=== PATIENT | female | born 1980 | race American Indian/Alaskan Native ===

== ENCOUNTER 2017-06-18 18:05 | Inpatient (IN) | payer MEDICAID, OTHER ==
[2017-06-18 19:47] LABS: BASO # 0.1 K/uL (0.0-0.2); BASO % 0.9 % (0.0-2.0); EOS # 0.2 K/uL (0.0-0.7); EOS % 2.1 % (0.0-4.0); HEMOGLOBIN 10.9 g/dL (11.0-16.0); LYMPH # 2.7 K/uL (1.0-4.3); LYMPH % 37.3 % (20.0-40.0); MEAN CELL VOLUME 71.5 fL (81.0-99.0); MEAN CORPUSCULAR HEMOGLOBIN 22.2 pg (27.0-31.0); MEAN CORPUSCULAR HGB CONC 31.1 g/dL (33.0-37.0); MEAN PLATELET VOLUME 7.5 fL (7.2-11.7); MONO # 0.4 K/uL (0.0-0.8); MONO % 5.6 % (0.0-10.0); NEUT % 54.1 % (50.0-75.0); NRBC % 0.1 % (0.0-2.0); RBC 4.93 Mil/uL (3.80-5.20); RED CELL DISTRIBUTION WIDTH 19.4 % (11.5-14.5); WHITE BLOOD COUNT 7.3 K/uL (4.8-10.8)
[2017-06-18 19:57] LABS: ACETAMINOPHEN < 10.0 ug/mL (10.0-30.0); SALICYLATE < 1.0 mg/dL 1
[2017-06-18 20:00] LABS: ALBUMIN 3.9 g/dL (3.5-5.0); ALT/SGPT 17 U/L (9-52); AST/SGOT 18 U/L (14-36); BLOOD UREA NITROGEN 10 mg/dL (7-17); CALCIUM 8.5 mg/dl (8.6-10.4); GFR AFRICAN-AMERICAN > 60; GFR NON-AFRICAN AMERICAN > 60
[2017-06-18 20:06] LABS: BARBITURATES, UR NEGATIVE (NEGATIVE); BENZODIAZEPINES, UR NEGATIVE (NEGATIVE); OPIATES, UR POSITIVE (NEGATIVE); PHENCYCLIDINE, UR NEGATIVE (NEGATIVE)
--- NOTE | 2017-06-18 21:03 | C.PDOC ---
History Of Present Illness Patient is a 36 y/o female who presents to the ED requesting detox. Patient admits to feeling depressed and having SI; admits snorting 15 bags of heroin a day, but denies IV drug use. Patient also admits to using cocaine often, smoking 4 cigarettes a day, and taking Xanax for anxiety. Patient has a Hx of HTN and cholecystectomy in 2011. Denies any allergies. No other physical complaints at this time. Time Seen by Provider: 06/18/17 19:18 Chief Complaint (Nursing): Substance Abuse History Per: Patient History/Exam Limitations: no limitations Onset/Duration Of Symptoms: Hrs Current Symptoms Are (Timing): Still Present Suicide/Self Injury Attempted (Context): None Modifying Factor(s): Narcotics (heroin), Cocaine Associated Symptoms: Depression, Suicidal Thoughts Recent travel outside of the [place] States: No Past Medical History Reviewed: Historical Data, Nursing Documentation, Vital Signs Vital Signs: Last Vital Signs Temp 98.4 F 06/18/17 23:39 Pulse 71 06/18/17 23:39 Resp 18 06/18/17 23:39 BP 135/96 H 06/18/17 23:39 Pulse Ox 99 06/19/17 06:10 - Medical History PMH: HTN Surgical History: Cholecystectomy Family History: States: No Known Family Hx - Social History Hx Alcohol Use: No Hx Substance Use: Yes - Immunization History Hx Tetanus Toxoid Vaccination: No Hx Influenza Vaccination: No Hx Pneumococcal Vaccination: No Review Of Systems Constitutional: Negative for: Fever, Chills Eyes: Negative for: Pain, Vision Change ENT: Negative for: Ear Pain, Ear Discharge, Nose Pain, Nose Discharge Cardiovascular: Negative for: Chest Pain, Palpitations, Orthopnea, Paroxysmal Noc. Dyspnea, Edema Respiratory: Negative for: Cough, Shortness of Breath, Hemoptysis, SOB with Excertion, Pleuritic Pain Gastrointestinal: Negative for: Nausea, Vomiting, Abdominal Pain, Diarrhea, Constipation, Melena, Hematochezia, Hematemesis, Rectal Pain Genitourinary: Negative for: Dysuria Musculoskeletal: Negative for: Neck Pain Skin: Negative for: Rash Neurological: Negative for: Weakness Psych: Positive for: Anxiety, Depression, Suicidal ideation, Other (requests detox) Physical Exam - Physical Exam Appears: Well, Non-toxic, No Acute Distress Skin: Normal Color, Warm, Dry Head: Atraumatic, Normacephalic Eye(s): bilateral: Normal Inspection Ear(s): Bilateral: Normal Nose: Normal Oral Mucosa: Moist Tongue: Normal Appearing Lips: Normal Appearing Teeth: Normal Dentition Chest: Symmetrical Cardiovascular: Rhythm Regular, No Murmur Respiratory: Normal Breath Sounds, No Rales, No Rhonchi, No Wheezing Gastrointestinal/Abdominal: Soft, No Tenderness ED Course And Treatment - Laboratory Results Result Diagrams: 06/18/17 19:39 06/18/17 19:39 O2 Sat by Pulse Oximetry: 99 Progress Note: Crisis notified for consult. 9:40pm magnesium and potassium administered. Patient admitted to psychiatry under Dr. Melgar for major depressive disorder, single episode. Medical Decision Making Medical Decision Making: Lab results: CBC negative Potassium 3.3, low urine negative positive for opiates and cocaine pt admitted to psych for depression with suicidal thoughts and substance abuse. labs unremarkable. Disposition - Disposition Disposition: HOSPITALIZED Disposition Time: 06:11 Condition: STABLE - Clinical Impression Clinical Impression: Drug dependence, Depression - Scribe Statement The provider has reviewed the documentation as recorded by the Scribchiara Gandhi All medical record entries made by the Scribe were at my direction and personally dictated by me. I have reviewed the chart and agree that the record accurately reflects my personal performance of the history, physical exam, medical decision making, and the department course for this patient. I have also personally directed, reviewed, and agree with the discharge instructions and disposition.
[2017-06-18] MEDS ORDERED: Magnesium Sulfate 1 gm in D5W 1 GM/100 ML BAG IVPB ONE (21:41)
[2017-06-18] MEDS ORDERED: Potassium Chloride 20 mEq ER Tab PO ONE (22:31)
[2017-06-18] MEDS ORDERED: Potassium Chloride 20 mEq ER Tab PO STA (22:34)
[2017-06-19] MEDS ORDERED: Aluminum Hydroxide/Magnesium Hydroxide Susp (30 mL) PO PRN (01:01)
--- NOTE | 2017-06-19 02:24 | PCM.BM ---
<JessicaClaudia - Last Filed: 06/19/17 02:21> Treatment Plan Problems - Problems identified on initial assessmt Problem 1 Date Initiated: 06/19/17 Time Initiated: 02:23 Treatment assets and liabiliti Patient Assests: adapts well, cooperative, motivated, ADL independent, good support system, negotiates basic needs Patient Liabilities: relationship conflicts, substance abuse <JosephineJosephineadrian - Last Filed: 06/19/17 12:42> - Diagnosis (1) Opioid use disorder, severe, dependence Status: Acute Interventions: 06/19/17 12:43 * Assess 7x/week regarding severity of withdrawal * Educate regarding risks, benefits, side effects and alternatives of medications * Use Motivational Interviewing for abstinence * Use CBT for relapse prevention * Medication management for withdrawal symptoms * Encourage medication assisted treatment * (2) Depression Status: Acute Interventions: 06/19/17 12:43 * Assess/adjust medications daily and /or as needed * See patient on an individual basis 7x/week to assess symptoms of depression * Monitor for side effects & effectiveness of medications * <Mandy Padilla - Last Filed: 06/20/17 10:42> Family Contact Family involvement: Famliy/SO not involved - Goals for Treatment Patient goals for treatment: "I want to go to rehab." Discharge/Continuing Care - Education Needs Education Needs: Patient Medication, Patient Coping Skills, Patient Placement options, Patient Community resources - Discharge Discharge Criteria: Tolerates medication w/o severe side effects, No longer exhibiting s/s of withdrawal Discharge to:: Substance Abuse Rehab - Treatment Team Participation Discussed with Family/SO: No Was Patient/Family/SO present at Treatment Team Meeting: Yes
[2017-06-19 06:10] VITALS: O2SAT 99
[2017-06-19] MEDS ORDERED: Potassium Chloride 20 mEq ER Tab PO SCH (10:00)
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
--- NOTE | 2017-06-20 10:48 | PCM.PYCHPN ---
Psychiatric Progress Note - Psychiatric Progress Note Patient seen today, length of contact: 16 min Patient Chief Complaint: "I am depressed" Problems Identified/Issues Discussed: The pt is seen alone and w the team, chart reviewed, case discussed with staff. Support given, CBT and MS used briefly No new symptoms reported, improving slowly and needs more time No SEs from medications, risks discussed. After care discussed - interested in [facility] Medication Change: Yes (meds change) Medical Record Reviewed: Yes Mental Status Examination - Cognitive Function Orientation: Person, Place, Situation, Time Memory: Intact Attention: Poor Concentration: Poor Association: WNL Fund of Knowledge: Poor - Mood Mood: Depressed, Anxious - Affect Affect: Constricted, Depressed - Speech Speech: Appropriate, Soft - Formal Thought Process Formal Thought Process: No Impairment - Suicidal Ideation Suicidal Ideation: No - Homicidal Ideation Homicidal Ideation: No Goal/Treatment Plan - Goal/Treatment Plan Need for Continued Stay: Discharge may exacerbated symptoms, Severe functional impairment Progress Toward Problem(s) and Goals/Treatment Plan: Fluexetine 20mg PO daily for depression Neurontin 300mg PO BID for anxiety Methadone detox As needed medications Attend groups and activities Individual therapy Psychoeducation and support MS for abstinence CBT for relapse prevention Encourage compliance with meds and after care Refer to outpatient program, rehab, or IOP Teach healthy lifestyle methods, i.e. diet, exercise, meditation Estimated Date of D/C: 06/25/17
--- NOTE | 2017-06-21 14:29 | PCM.PYCHPN ---
Psychiatric Progress Note - Psychiatric Progress Note Patient seen today, length of contact: 16 min Patient Chief Complaint: "I am depressed" Problems Identified/Issues Discussed: The pt is seen, chart reviewed, case discussed with staff. The pt is compliant with medications and reports no side-effects. Symptoms are improving but needs more time to stabilize. Still isolated and looks and says she is depressed After care discussed, support and psychoeducation given. Waiting from [facility] Medication Change: Yes (meds change) Medical Record Reviewed: Yes Mental Status Examination - Cognitive Function Orientation: Person, Place, Situation, Time Memory: Intact Attention: Poor Concentration: Poor Association: WNL Fund of Knowledge: Poor - Mood Mood: Depressed, Anxious - Affect Affect: Constricted, Depressed - Speech Speech: Appropriate, Soft - Formal Thought Process Formal Thought Process: No Impairment - Suicidal Ideation Suicidal Ideation: No - Homicidal Ideation Homicidal Ideation: No Goal/Treatment Plan - Goal/Treatment Plan Need for Continued Stay: Discharge may exacerbated symptoms, Severe functional impairment Progress Toward Problem(s) and Goals/Treatment Plan: Fluexetine 20mg PO daily for depression Neurontin 300mg PO BID for anxiety Methadone detox As needed medications Attend groups and activities Individual therapy Psychoeducation and support IN for abstinence CBT for relapse prevention Encourage compliance with meds and after care Refer to outpatient program, rehab, or IOP Teach healthy lifestyle methods, i.e. diet, exercise, meditation Estimated Date of D/C: 06/25/17
[2017-06-22] MEDS ORDERED: Influenza Vaccine 60 mcg/0.5 mL SYR (4YR UP) IM ONE (09:00)
[2017-06-22] MEDS ORDERED: Pneumococcal 23-Valent Vaccine IM ONE (09:00)
--- NOTE | 2017-06-22 14:18 | PCM.PYCHPN ---
Psychiatric Progress Note - Psychiatric Progress Note Patient seen today, length of contact: 16 min Patient Chief Complaint: "I feel like the medication is helping" Problems Identified/Issues Discussed: The pt is seen, chart reviewed, case discussed with staff. Patient has been tearful and not sleeping well through the night. She states the she has been better on the medications. The pt is compliant with medications and reports no side-effects. Symptoms are improving but needs more time to stabilize. After care discussed, support and psychoeducation given. Medication Change: Yes (increase prozac to 40 mg) Medical Record Reviewed: Yes Mental Status Examination - Cognitive Function Orientation: Person, Place, Situation, Time Memory: Intact Attention: Poor Concentration: Poor Association: WNL Fund of Knowledge: Poor - Mood Mood: Depressed, Anxious - Affect Affect: Constricted, Depressed - Speech Speech: Appropriate, Soft - Formal Thought Process Formal Thought Process: No Impairment - Suicidal Ideation Suicidal Ideation: No - Homicidal Ideation Homicidal Ideation: No Goal/Treatment Plan - Goal/Treatment Plan Need for Continued Stay: Discharge may exacerbated symptoms, Severe functional impairment Progress Toward Problem(s) and Goals/Treatment Plan: Fluexetine 40mg PO daily for depression Methadone detox As needed medications Attend groups and activities Individual therapy Psychoeducation and support AR for abstinence CBT for relapse prevention Encourage compliance with meds and after care Refer to outpatient program, rehab, or IOP Teach healthy lifestyle methods, i.e. diet, exercise, meditation Estimated Date of D/C: 06/26/17 If changed, why: still depressed
--- NOTE | 2017-06-23 11:36 | PCM.PYCHPN ---
Psychiatric Progress Note - Psychiatric Progress Note Patient seen today, length of contact: 16 min Patient Chief Complaint: I'm hearing voices Medication Change: Yes (increase prozac to 40 mg) Medical Record Reviewed: Yes Mental Status Examination - Cognitive Function Orientation: Person, Place, Situation, Time Memory: Intact Attention: Poor Concentration: Poor Association: WNL Fund of Knowledge: Poor - Mood Mood: Depressed, Anxious - Affect Affect: Constricted, Depressed - Speech Speech: Appropriate, Soft - Formal Thought Process Formal Thought Process: Hallucinations - Suicidal Ideation Suicidal Ideation: No - Homicidal Ideation Homicidal Ideation: No Goal/Treatment Plan - Goal/Treatment Plan Need for Continued Stay: Discharge may exacerbated symptoms, Severe functional impairment Progress Toward Problem(s) and Goals/Treatment Plan: Fluexetine 40mg PO daily for depression Methadone detox As needed medications Attend groups and activities Individual therapy Psychoeducation and support SC for abstinence CBT for relapse prevention Encourage compliance with meds and after care Refer to outpatient program, rehab, or IOP Teach healthy lifestyle methods, i.e. diet, exercise, meditation Estimated Date of D/C: 06/26/17
--- NOTE | 2017-06-24 13:35 | PCM.PYCHPN ---
Psychiatric Progress Note - Psychiatric Progress Note Patient seen today, length of contact: 16 min Patient Chief Complaint: I'm still feeling paranoid Medication Change: Yes (increase prozac to 60 mg, start prolixin 5 gm PO BID) Medical Record Reviewed: Yes Mental Status Examination - Cognitive Function Orientation: Person, Place, Situation, Time Memory: Intact Attention: Poor Concentration: Poor Association: WNL Fund of Knowledge: Poor - Mood Mood: Depressed, Anxious - Affect Affect: Constricted, Depressed - Speech Speech: Appropriate, Soft - Formal Thought Process Formal Thought Process: Hallucinations, Paranoia - Suicidal Ideation Suicidal Ideation: No - Homicidal Ideation Homicidal Ideation: No Goal/Treatment Plan - Goal/Treatment Plan Need for Continued Stay: Discharge may exacerbated symptoms, Severe functional impairment Progress Toward Problem(s) and Goals/Treatment Plan: Fluexetine 40mg PO daily for depression Methadone detox As needed medications Attend groups and activities Individual therapy Psychoeducation and support VT for abstinence CBT for relapse prevention Encourage compliance with meds and after care Refer to outpatient program, rehab, or IOP Teach healthy lifestyle methods, i.e. diet, exercise, meditation Estimated Date of D/C: 06/26/17
--- NOTE | 2017-06-25 13:26 | PCM.PYCHPN ---
Psychiatric Progress Note - Psychiatric Progress Note Patient seen today, length of contact: 16 min Patient Chief Complaint: "I feel like I'm improving Problems Identified/Issues Discussed: The pt is seen, chart reviewed, case discussed with staff. Weekend events discussed. She said she had heard a vooice but it was brief Doing better now Agreed to switch meds - risks discussed Support given She now says her PO will not allow her to leave the [facility] to [facility] ([facility] . Technology Director asked her to call again and explain how hard it is to find a rehab She says if not, she may go to her brother's house, which is new. Medication Change: Yes (DC prolixin/cogentin, start abilify) Medical Record Reviewed: Yes Mental Status Examination - Cognitive Function Orientation: Person, Place, Situation, Time Memory: Intact Attention: Poor Concentration: Poor Association: WNL Fund of Knowledge: Poor - Mood Mood: Depressed, Anxious - Affect Affect: Constricted, Depressed - Speech Speech: Appropriate, Soft - Formal Thought Process Formal Thought Process: No Impairment - Suicidal Ideation Suicidal Ideation: No - Homicidal Ideation Homicidal Ideation: No Goal/Treatment Plan - Goal/Treatment Plan Need for Continued Stay: Discharge may exacerbated symptoms, Severe functional impairment Progress Toward Problem(s) and Goals/Treatment Plan: Fluexetine 40mg PO daily for depression Abilify 5 mg for AH and augmentation Methadone detox ended As needed medications Attend groups and activities Individual therapy Psychoeducation and support FL for abstinence CBT for relapse prevention Encourage compliance with meds and after care Refer to outpatient program, rehab, or IOP Teach healthy lifestyle methods, i.e. diet, exercise, meditation Estimated Date of D/C: 06/28/17 If changed, why: not well yet
--- NOTE | 2017-06-26 15:12 | PCM.PYCHPN ---
Psychiatric Progress Note - Psychiatric Progress Note Patient seen today, length of contact: 16 min Patient Chief Complaint: "I feel depressed today" Problems Identified/Issues Discussed: The pt is seen, chart reviewed, case discussed with staff. Discussed the issue of her PO not allowing her to leave the sate for [employer]. Patient states she doesn't want to go after finding out her mother yesterday. States her brother is a senior information security analyst at [employer] and is going to try to get her in there. She now wishes to go to [employer] and will live with him. The pt is compliant with medications and reports no side-effects. Symptoms are improving but needs more time to stabilize. After care discussed, support and psychoeducation given. Medication Change: Yes (DC prolixin/cogentin, start abilify) Medical Record Reviewed: Yes Mental Status Examination - Cognitive Function Orientation: Person, Place, Situation, Time Memory: Intact Attention: Poor Concentration: Poor Association: WNL Fund of Knowledge: Poor - Mood Mood: Depressed, Anxious - Affect Affect: Constricted, Depressed - Speech Speech: Appropriate, Soft - Formal Thought Process Formal Thought Process: No Impairment - Suicidal Ideation Suicidal Ideation: No - Homicidal Ideation Homicidal Ideation: No Goal/Treatment Plan - Goal/Treatment Plan Need for Continued Stay: Discharge may exacerbated symptoms, Severe functional impairment Progress Toward Problem(s) and Goals/Treatment Plan: Fluexetine 40mg PO daily for depression Abilify 5 mg for AH and augmentation Methadone detox ended As needed medications Attend groups and activities Individual therapy Psychoeducation and support AR for abstinence CBT for relapse prevention Encourage compliance with meds and after care Refer to outpatient program, rehab, or IOP Teach healthy lifestyle methods, i.e. diet, exercise, meditation Estimated Date of D/C: 06/27/17
[2017-06-27 06:49] VITALS: BP 106/63; PULSE 56; RESP 20; TEMP 98
--- NOTE | 2017-06-27 10:38 | PCM.PYCHDC ---
Mental Status Examination - Mental Status Examination Orientation: Person, Place, Situation, Time Memory: Intact Mood: Depressed Affect: Broad Speech: Appropriate Attention: WNL Concentration: WNL Association: WNL Fund of Knowledge: WNL Formal Thought Process: No Impairment Suicidal Ideation: No Current Homicidal Ideation?: No Discharge Summary - Discharge Note Reason for Hospitalization: Depression and detox from heroin Consultations:: List each consultation separately and include: 1. Reason for request. 2. Findings. 3. Follow-up Summary of Hospital Course include:: 1. Description of specific treatment plan utilized for patients during their course of treatmen. 2. Summarize the time- course for resolution of acute symptoms and/or regressed behaviors. 3. Describe issues identified and worked on during hospitalization. 4. Describe medication utilized. 5. Describe medical problems identified and treated. 6. Reassessment of suicide risk Summary of Hospital Course: The pt was admitted and started on treatment with psychotherapy, support, psychoeducation and medications. MS and CBT used. The pt attended groups and activities, as well as milieu therapy. All the risks and benefits of medications are discussed and the patient understood and agreed. The pt improved with the treatments provided. After care discussed with the patient. Plans to go live with her brother who is trying to get [facility] a bed [facility]. - Final Diagnosis (DSM 5) Condition upon Discharge: STABLE DSM 5: Major depression, recurrent, severe, w/o psychosis Anxiety d/o- unspecified Opioid use d/o- severe Opiate withdraw Cocaine use d/o- severe Disposition: HOME/ ROUTINE Follow-up Treatment Plan: Continue below medications after discharge. PSGeovani Abilify is switched to seroquel 100 mg HS after d/c because her insurance denied it. Follow after care plan as discussed. Use relapse prevention skills Return to ER or call 911 if suicidal, homicidal or symptoms relapse. Stay away from stress, alcohol and drugs. See primary doctor regularly and get labs. Prescriptions/Medication Reconciliation: ARIPiprazole [Abilify] 5 mg PO HS #30 tab FLUoxetine [Prozac] 40 mg PO DAILY #30 cap traZODone [Desyrel] 100 mg PO HS #30 tab - Antipsychotic Medications Pt discharged on 2 or more routine antipsychotic medications: No
== END 2017-06-27 11:45 | disposition home or self-care (01) | DRG 430 ==
LOC: C.ER 18:05 → C.5E 22:29
PROVIDERS: ADMIT Psychiatry & Neurology Psychiatry; ATTEND Psychiatry & Neurology Psychiatry
PROC: GZ3ZZZZ Medication Management (ICD-10-PCS; principal; 2017-06-18)
PROC: HZ2ZZZZ Detoxification Services for Substance Abuse Treatment (ICD-10-PCS; 2017-06-18)
PROC: GZHZZZZ Group Psychotherapy (ICD-10-PCS; 2017-06-18)
PROC: HZ56ZZZ Individual Psychotherapy for Substance Abuse Treatment, Psychoeducation (ICD-10-PCS; 2017-06-18)
PROC: GZ56ZZZ Individual Psychotherapy, Supportive (ICD-10-PCS; 2017-06-18)
DX: F33.2 Major depressive disorder, recurrent severe without psychotic features (principal); R45.851 Suicidal ideations; F11.23 Opioid dependence with withdrawal; F14.90 Cocaine use, unspecified, uncomplicated; F43.12 Post-traumatic stress disorder, chronic; F41.9 Anxiety disorder, unspecified; F17.210 Nicotine dependence, cigarettes, uncomplicated; I10 Essential (primary) hypertension; Z59.0 Homelessness; Z90.49 Acquired absence of other specified parts of digestive tract

== ENCOUNTER 2018-09-12 05:30 | Inpatient (IN) | payer MEDICAID, OTHER ==
[2018-09-12 06:22] LABS: BASO # 0.2 K/uL (0.0-0.2); BASO % 1.4 % (0.0-2.0); EOS # 0.3 K/uL (0.0-0.7); EOS % 2.5 % (0.0-4.0); HEMOGLOBIN 10.9 g/dL (11.0-16.0); LYMPH # 3.7 K/uL (1.0-4.3); LYMPH % 33.9 % (20.0-40.0); MEAN CELL VOLUME 72.7 fL (81.0-99.0); MEAN CORPUSCULAR HEMOGLOBIN 23.2 pg (27.0-31.0); MEAN PLATELET VOLUME 7.2 fL (7.2-11.7); MONO # 0.6 K/uL (0.0-0.8); MONO % 5.2 % (0.0-10.0); NEUT # 6.3 K/uL (1.8-7.0); NRBC % 0.1 % (0.0-2.0); RBC 4.67 Mil/uL (3.80-5.20); RED CELL DISTRIBUTION WIDTH 20.5 % (11.5-14.5)
[2018-09-12 06:27] LABS: SQUAMOUS EPITHIAL 4 /hpf (0-5); URINE BILIRUBIN NEGATIVE (NEGATIVE); URINE BLOOD 3+ (NEGATIVE); URINE CLARITY Hazy (Clear); URINE COLOR Amber (YELLOW); URINE GLUCOSE (UA) NORMAL (Normal); URINE LEUKOCYTE ESTERASE TRACE Leu/uL (Negative); URINE PROTEIN 2+ mg/dL (NEGATIVE)
[2018-09-12 06:36] LABS: ALB/GLOB RATIO 1.3 (1.0-2.1); ALBUMIN 4.3 g/dL (3.5-5.0); ALT/SGPT 13 U/L (9-52); AST/SGOT 20 U/L (14-36); BLOOD UREA NITROGEN 11 mg/dL (7-17); CALCIUM 9.4 mg/dl (8.6-10.4); GFR NON-AFRICAN AMERICAN > 60
[2018-09-12 06:44] LABS: BARBITURATES, UR NEGATIVE (NEGATIVE); BENZODIAZEPINES, UR NEGATIVE (NEGATIVE); PHENCYCLIDINE, UR NEGATIVE (NEGATIVE)
[2018-09-12 06:48] LABS: OPIATES, UR POSITIVE (NEGATIVE)
--- NOTE | 2018-09-12 06:48 | C.PDOC ---
History Of Present Illness 37-year-old female, whose past medical history includes anxiety and panic attacks, presents to the ED for psychiatric evaluation. Patient states she has been feeling depressed and feeling like she wants to hurt herself. She was advis ed by her communications equipment operator to present to the ED for further evaluation. Patient does not regularly follow with a psychiatrist and is not taking any psychiatric medications. Patient reports history of hypertension, but states she stopped taking her medication. She denies suicidal plan or attempt. Time Seen by Provider: 09/12/18 06:12 Chief Complaint (Nursing): Psychiatric Evaluation History Per: Patient History/Exam Limitations: no limitations Onset/Duration Of Symptoms: Days Current Symptoms Are (Timing): Still Present Suicide/Self Injury Attempted (Context): None Associated Symptoms: Depression, Suicidal Thoughts. denies: Suicidal Plan Involuntary Hold By: None Recent travel outside of the [place]: No Additional History Per: Patient Past Medical History Reviewed: Historical Data, Nursing Documentation, Vital Signs Vital Signs: Last Vital Signs Temp 97.9 F 09/12/18 05:55 Pulse 90 09/12/18 05:55 Resp 20 09/12/18 05:55 BP 136/84 09/12/18 05:55 Pulse Ox 95 09/12/18 05:55 - Medical History PMH: Anxiety, Depression, HTN Denies: Diabetes, Hepatitis, HIV, Chronic Kidney Disease, Seizures, Sexually Transmitted Disease Surgical History: Cholecystectomy - [facility] Procedures DETOXIFICATION SERVICES FOR SUBSTANCE ABUSE TREATMENT (06/18/17) GROUP PSYCHOTHERAPY (02/19/18) INDIV PSYCHOTHERAPY FOR SUBSTANCE ABUSE, PSYCHOEDUCATION (06/18/17) INDIVIDUAL PSYCHOTHERAPY, SUPPORTIVE (02/19/18) MEDICATION MANAGEMENT (06/18/17) Family History: States: Unknown Family Hx - Social History Hx Alcohol Use: Yes (occasionally) Hx Substance Use: Yes (heroin,cocaine,xanax) - Immunization History Hx Tetanus Toxoid Vaccination: No Hx Influenza Vaccination: No Hx Pneumococcal Vaccination: No Review Of Systems Constitutional: Negative for: Fever, Chills, Weakness Cardiovascular: Negative for: Chest Pain, Palpitations Respiratory: Negative for: Cough, Shortness of Breath Gastrointestinal: Negative for: Nausea, Vomiting Skin: Negative for: Rash, Lesions, Jaundice, Bruising Neurological: Negative for: Weakness, Numbness, Dizziness Psych: Positive for: Depression, Suicidal ideation (no plan ) Physical Exam - Physical Exam Appears: Well, Non-toxic, No Acute Distress Skin: Normal Color, Warm, No Rash Head: Atraumatic, Normacephalic Eye(s): bilateral: Normal Inspection, PERRL, EOMI Oral Mucosa: Moist Neck: Normal ROM, Supple Chest: Symmetrical, No Deformity Cardiovascular: Rhythm Regular, No Murmur Respiratory: No Accessory Muscle Use, No Rales, No Rhonchi, No Wheezing, Other (normal inspiratory effort ) Gastrointestinal/Abdominal: Soft, No Distention Extremity: Normal ROM Extremity: Bilateral: Atraumatic Neurological/Psych: Oriented x3, Normal Cranial Nerves (grossly intact ) ED Course And Treatment - Laboratory Results Result Diagrams: 09/12/18 06:18 09/12/18 06:18 Lab Results: Total Bilirubin 0.4 mg/dL (0.2-1.3) 09/12/18 06:18 AST 20 U/L (14-36) 09/12/18 06:18 ALT 13 U/L (9-52) 09/12/18 06:18 Alkaline Phosphatase 62 U/L (38-126) 09/12/18 06:18 Total Protein 7.6 g/dL (6.3-8.3) 09/12/18 06:18 Albumin 4.3 g/dL (3.5-5.0) 09/12/18 06:18 Globulin 3.3 gm/dL (2.2-3.9) 09/12/18 06:18 Albumin/Globulin Ratio 1.3 (1.0-2.1) 09/12/18 06:18 Urine Color Otilia (YELLOW) 09/12/18 06:18 Urine Clarity Hazy (Clear) 09/12/18 06:18 Urine pH 5.0 (5.0-8.0) 09/12/18 06:18 Ur Specific [place] 1.031 (1.003-1.030) H 09/12/18 06:18 Urine Protein 2+ mg/dL (NEGATIVE) H 09/12/18 06:18 Urine Glucose (UA) Normal mg/dL (Normal) 09/12/18 06:18 Urine Ketones Trace mg/dL (NEGATIVE) 09/12/18 06:18 Urine Blood 3+ (NEGATIVE) H 09/12/18 06:18 Urine Nitrate Negative (NEGATIVE) 09/12/18 06:18 Urine Bilirubin Negative (NEGATIVE) 09/12/18 06:18 Urine Urobilinogen 4.0 mg/dL (0.2-1.0) H 09/12/18 06:18 Ur Leukocyte Esterase Trace [place]/uL (Negative) 09/12/18 06:18 Urine WBC (Auto) 6 /hpf (0-5) H 09/12/18 06:18 Urine RBC (Auto) 166 /hpf (0-3) H 09/12/18 06:18 Ur Squamous Epith Cells 4 /hpf (0-5) 09/12/18 06:18 Urine HCG, Qual Negative (NEGATIVE) 09/12/18 06:18 Urine HCG, Qual Negative (NEGATIVE) 09/12/18 06:18 O2 Sat by Pulse Oximetry: 95 (on RA ) Pulse Ox Interpretation: Normal Medical Decision Making Medical Decision Making: Progress: Bloodwork and urinalysis ordered. Patient placed on 1:1 ED observation. Disposition - Disposition Disposition Time: 07:24 Condition: STABLE Forms: [employer] (Uzbek) - Clinical Impression Clinical Impression: Depression - PA / OFFICE BOOKKEEPER / Resident Statement MD/DO has reviewed & agrees with the documentation as recorded. - Scribe Statement The provider has reviewed the documentation as recorded by the Scribe (Sandrita Cam) All medical record entries made by the Scribe were at my direction and personally dictated by me. I have reviewed the chart and agree that the record accurately reflects my personal performance of the history, physical exam, medical decision making, and the department course for this patient. I have also personally directed, reviewed, and agree with the discharge instructions and disposition. Physician Patient Turnover Patient Signed Over To: Mona Langley (needs to speak to crisis)
[2018-09-12] MEDS ORDERED: Potassium Chloride 20 mEq/15 ml LIQ UD PO STA (07:25)
[2018-09-12] MEDS ORDERED: Potassium Chloride 20 mEq ER Tab PO ONE (08:46)
[2018-09-12 10:14] VITALS: O2SAT 99
--- NOTE | 2018-09-12 12:01 | PCM.BM ---
<Myrna Mcdonough - Last Filed: 09/12/18 12:00> Treatment Plan Problems - Problems identified on initial assessmt Substance Abuse Date Initiated: 09/12/18 Time Initiated: 12:00 Assessment reference: NA Status: Active Suicidal Ideations. Date Initiated: 09/12/18 Time Initiated: 12:01 Assessment reference: NA Status: Active Treatment assets and liabiliti Patient Assests: adapts well, cooperative, motivated, ADL independent, good support system, negotiates basic needs Patient Liabilities: poor support system, substance abuse - Milieu Protocol Maintain good personal hygiene: daily Encourage regular showers, daily Remind patient to perform daily oral care, daily Assist patient to perform ADL's Conduct patient checks and document Observation sheet: Q15 minutes Maintain personal safety: every shift Educate patient to report safety concerns to staff, every shift Monitor environment for contraband/sharps Medication safety: Monitor for expected outcome, potential side effects: every shift, Assess barriers to learning: every shift, Assess readiness for medication education: every shift <Radha Melgar - Last Filed: 09/13/18 11:14> - Diagnosis (1) Depression Status: Acute Interventions: 09/13/18 11:15 * Assess/adjust medications daily and /or as needed * See patient on an individual basis 7x/week to assess symptoms of depression * Monitor for side effects & effectiveness of medications * (2) Opioid use disorder, severe, dependence Status: Acute Interventions: 09/13/18 11:15 * Assess 7x/week regarding severity of withdrawal * Educate regarding risks, benefits, side effects and alternatives of medications * Use Motivational Interviewing for abstinence * Use CBT for relapse prevention * Medication management for withdrawal symptoms * Encourage medication assisted treatment * <Eduarda Yañez - Last Filed: 09/13/18 13:06> Family Contact Family involvement: Patient does not wish Family/SO involvement Family contact: Patient declines to allow family contact at present - Goals for Treatment Patient goals for treatment: "I want to go to an outpatient program." Discharge/Continuing Care - Education Needs Education Needs: Patient Medication, Patient Diagnosis/Disease Process, Patient Coping Skills, Patient Placement options, Patient Community resources - Discharge Discharge Criteria: Free of Suicidal thoughts, Normal sleep pattern, Ability to care for self, No longer exhibiting s/s of withdrawal, Reduction of target symptoms Discharge to:: Senior Living - Treatment Team Participation Discussed with Family/SO: No Was Patient/Family/SO present at Treatment Team Meeting: Yes
[2018-09-12] MEDS ORDERED: Aluminum Hydroxide/Magnesium Hydroxide Susp (30 mL) PO PRN (22:25)
--- NOTE | 2018-09-12 23:24 | PCM.PSYCH ---
Initial Psychiatric Evaluation - Initial Psychiatric Evaluation Type of Admission: Voluntary Legal Status: Capacity Chief Complaint (in patient's own words): I was hearing voices to kill myself.' History of Present Illness and Precipitating Events: Patient is a 37 YO F with past psych history of depression, anxiety and substance abuse, presented to the [facility] ED on 09/12/18 for worsening depression and suicidal ideations. She has been hospitalized with psychiatric conditions at [facility] on 06/18/17 and [facility] 2 years ago. She has multiple previous suicide attempts via pill overdose, last attempt being last year. She has been having worsening depression over the past week with increased suicidal thoughts. She currently does not have a outpatient psychiatrist, and does not take medications for her conditions. She had been living with a partner up until 1.5 weeks ago, when she was asked by them to leave. She has since been living with a friend. Patient is currently unemployed. She has 6 children whom she has minimal contact with. She reports currently using heroin intranasally, 10-13 bag per day, her last use yesterday. She also reports current cocaine and alcohol use, 15 bags of cocaine per day. She currently has auditory hallucinations, voices telling her to hurt herself. She reports past ideations to hurt others, but does not anymore. She reports depressed mood, at times feelings of hopelessness and helplessness, poor sleep and poor appetite. She also reports withdrawal symptoms from heroin including cramps, nausea, vomiting, joint pains and headaches. Past medical history None reported Current Medications: Active Medications Generic Name Dose Route Start Last Admin Trade Name Freq PRN Reason Stop Dose Admin Al Hydrox/Mg Hydrox/Simethicone 30 ml 09/12/18 22:25 Maalox 30 Ml PO TID PRN Indigestion / Heartburn Clonidine HCl 0.1 mg 09/12/18 22:25 Catapres PO Q4 PRN COWS Score More or Equal to 5 Dicyclomine HCl 10 mg 09/12/18 22:25 Bentyl PO Q6 PRN Muscle spasm Gabapentin 100 mg 09/13/18 10:00 Neurontin PO TID SADE Ibuprofen 600 mg 09/12/18 12:39 09/12/18 14:12 Motrin Tab PO 600 mg Q6 PRN Administration Pain, moderate (4-7) Loperamide HCl 2 mg 09/12/18 22:25 Imodium PO Q8 PRN Diarrhea Methadone HCl 0 mg 09/13/18 10:00 Methadone PO 09/17/18 09:59 Q24H SADE Taper Ondansetron HCl 4 mg 09/12/18 22:25 Zofran Tab PO Q8 PRN Nausea/Vomiting Pneumococcal Polyvalent Vaccine 0.5 ml 09/14/18 10:00 Pneumovax 23 Vaccine IM 09/14/18 10:01 .ONCE ONE Pseudoephedrine HCl 60 mg 09/12/18 22:25 Sudafed Tab PO QID PRN Nasal/Sinus Congestion Trazodone HCl 50 mg 09/12/18 22:27 Desyrel PO HS PRN Insomnia Past Psychiatric History - Past Psychiatric History Previous Treatment History: Inpatient Pertinent Medical Hx (Current Medical&Sleep Prob, Allergies): Allergies Allergy/AdvReac Type Severity Reaction Status Date / Time SHRIMP Allergy Mild RASH Uncoded 09/12/18 06:01 Gabapentin [Neurontin] 200 mg PO TID cap 02/25/18 Review of Systems - Review of Systems All systems: reviewed and no additional remarkable complaints except - Psychiatric Psychiatric: Anxiety, Auditory Hallucinations, Irritability, Paranoia, Suicidal Ideation Mental Status Examination - Personal Presentation Personal Presentation: Looks stated age - Affect Affect: Constricted, Depressed - Motor Activity Motor Activity: Psychomotor Agitation - Reliability in Providing Information Reliability in Providing Information: Poor, due to alteration in thoughts, Poor, due to altered mood - Speech Speech: Disorganized - Mood Mood: Anxious - Formal Thought Process Formal Thought Process: Hallucinations, Delusions, Paranoia - Hallucinations/Delusions Hallucinations: Auditory Delusions: Persecution - Obsessions/Compulsions Obsessions: No Compulsions: No - Cognitive Functions Orientation: Person, Place, Situation, Time Sensorium: Alert Attention/Concentration: Attentive Abstract Thinking: Marilla Estimate of Intelligence: Below average Judgement: Imparied, as evidence by: Poor judgement, Imparied, as evidence by: Lack of insight into illness - Risk Risk: Suicidal, Withdrawal, Diminished functioning - Strength & Assets Inventory Strength & Assets Inventory: Family support DSM 5 DX - DSM 5 DSM 5 Diagnosis: Major depressive disorder recurrent severe with psychotic features Opioid use disorder severe Opioid withdrawal Cocaine use disorder severe - Recommended/Plan of Treatment Treatment Recommendations and Plan of Treatment: Major depressive disorder recurrent severe with psychotic features Opioid use disorder severe Opioid withdrawal Cocaine use disorder severe -CBT -Psychoeducation -Supportive therapy and group therapy -Neurontin for augmentation -Methadone taper -Withdrawal medication including Zofran/clonidine/Motrin -Trazodone for insomnia -Hydroxyzine for anxiety -And Remeron for depression
--- NOTE | 2018-09-13 11:14 | PCM.PYCHPN ---
Psychiatric Progress Note - Psychiatric Progress Note Patient seen today, length of contact: 15 min Patient Chief Complaint: I was hearing voices.' Problems Identified/Issues Discussed: Patient seen and evaluated, chart reviewed and discussed with the nurse. Patient reports depressed mood and at times feelings of hopelessness and helplessness. She remained isolated and withdrawn and confined to her room Patient still reports of withdrawal symptoms including anxiety, cramps, bone pains, sweating and headaches. She is still walking with a walker. She is taking medication and denies any side effects. Supportive therapy and psychoeducation were given Medication Change: Yes Medical Record Reviewed: Yes Mental Status Examination - Cognitive Function Orientation: Person, Place, Situation, Time Memory: Intact Attention: WNL Concentration: Poor Association: WNL Fund of Knowledge: Poor - Mood Mood: Anxious - Affect Affect: Constricted, Depressed - Speech Speech: Soft - Formal Thought Process Formal Thought Process: Hallucinations, Delusions, Paranoia - Suicidal Ideation Suicidal Ideation: No - Homicidal Ideation Homicidal Ideation: No Goal/Treatment Plan - Goal/Treatment Plan Need for Continued Stay: Remain at risks for inpatient hospitalization Progress Toward Problem(s) and Goals/Treatment Plan: Major depressive disorder recurrent severe with psychotic features Opioid use disorder severe Opioid withdrawal Cocaine use disorder severe -CBT -Psychoeducation -Supportive therapy and group therapy -Neurontin for augmentation -Methadone taper -Withdrawal medication including Zofran/clonidine/Motrin -Trazodone for insomnia -Hydroxyzine for anxiety -Remeron for depression -Seroquel for psychosis - Smoking Cessation Smoking Cessation Initiated: No
[2018-09-14 06:47] VITALS: RESP 18
[2018-09-14] MEDS ORDERED: Pneumococcal 23-Valent Vaccine IM ONE (10:00)
--- NOTE | 2018-09-14 11:28 | PCM.PYCHPN ---
Psychiatric Progress Note - Psychiatric Progress Note Patient seen today, length of contact: 15 min Patient Chief Complaint: I m feeling depressed.' Problems Identified/Issues Discussed: Patient seen and evaluated, chart reviewed and discussed with the nurse. She remained isolated and withdrawn and confined to her room. Patient reports depressed mood and at times feelings of hopelessness and helplessness. Patient reports hallucinations and paranoia. Patient still reports of withdrawal symptoms including anxiety, cramps, bone pains, sweating and headaches. She is still walking with a walker. She is taking medication and denies any side effects. Symptoms are improving gradually but she needs to stay longer for further stabilization. Supportive therapy and psychoeducation were given Medication Change: Yes Medical Record Reviewed: Yes Mental Status Examination - Cognitive Function Orientation: Person, Place, Situation, Time Memory: Intact Attention: WNL Concentration: Poor Association: WNL Fund of Knowledge: Poor - Mood Mood: Anxious - Affect Affect: Constricted, Depressed - Speech Speech: Soft - Formal Thought Process Formal Thought Process: Hallucinations, Delusions, Paranoia - Suicidal Ideation Suicidal Ideation: No - Homicidal Ideation Homicidal Ideation: No Goal/Treatment Plan - Goal/Treatment Plan Need for Continued Stay: Remain at risks for inpatient hospitalization Progress Toward Problem(s) and Goals/Treatment Plan: Major depressive disorder recurrent severe with psychotic features Opioid use disorder severe Opioid withdrawal Cocaine use disorder severe -CBT -Psychoeducation -Supportive therapy and group therapy -Neurontin for augmentation -Methadone taper -Withdrawal medication including Zofran/clonidine/Motrin -Trazodone for insomnia -Hydroxyzine for anxiety -Remeron for depression -Seroquel for psychosis
[2018-09-17 06:36] VITALS: BP 110/71; PULSE 61; TEMP 98.4
--- NOTE | 2018-09-17 10:19 | PCM.PYCHDC ---
Mental Status Examination - Mental Status Examination Orientation: Person, Place, Situation, Time Memory: Intact Mood: Neutral Affect: Constricted Speech: Soft Attention: WNL Concentration: WNL Association: WNL Fund of Knowledge: WNL Formal Thought Process: No Impairment Description of patient's judgement and insight: good, fair Psychotic Thoughts and Behaviors: denies any AVH Suicidal Ideation: No Current Homicidal Ideation?: No Discharge Summary - Discharge Note Reason for Hospitalization: Patient is a 37 YO F with past psych history of depression, anxiety and substance abuse, presented to the [facility] ED on 09/12/18 for worsening depression and suicidal ideations. She has been hospitalized with psychiatric conditions at [facility] on 06/18/17 and [facility] 2 years ago. She has multiple previous suicide attempts via pill overdose, last attempt being last year. She has been having worsening depression over the past week with increased suicidal thoughts. She currently does not have a outpatient psychiatrist, and does not take medications for her conditions. She had been living with a partner up until 1.5 weeks ago, when she was asked by them to leave. She has since been living with a friend. Patient is currently unemployed. She has 6 children whom she has minimal contact with. She reports currently using heroin intranasally, 10-13 bag per day, her last use yesterday. She also reports current cocaine and alcohol use, 15 bags of cocaine per day. She currently has auditory hallucinations, voices telling her to hurt herself. She reports past ideations to hurt others, but does not anymore. She reports depressed mood, at times feelings of hopelessness and helplessness, poor sleep and poor appetite. She also reports withdrawal symptoms from heroin including cramps, nausea, vomiting, joint pains and headaches. Consultations:: List each consultation separately and include: 1. Reason for request. 2. Findings. 3. Follow-up Summary of Hospital Course include:: 1. Description of specific treatment plan utilized for patients during their course of treatmen. 2. Summarize the time- course for resolution of acute symptoms and/or regressed behaviors. 3. Describe issues identified and worked on during hospitalization. 4. Describe medication utilized. 5. Describe medical problems identified and treated. 6. Reassessment of suicide risk Summary of Hospital Course: Patient is a 37 YO F with past psych history of depression, anxiety and substance abuse, presented to the [facility] ED on 09/12/18 for worsening depression and suicidal ideations. She has been hospitalized with psychiatric conditions at [facility] on 06/18/17 and [facility] 2 years ago. She has multiple previous suicide attempts via pill overdose, last attempt being last year. She has been having worsening depression over the past week with increased suicidal thoughts. She currently does not have a outpatient psychiatrist, and does not take medications for her conditions. She had been living with a partner up until 1.5 weeks ago, when she was asked by them to leave. She has since been living with a friend. Patient is currently unemployed. She has 6 children whom she has minimal contact with. She reports currently using heroin intranasally, 10-13 bag per day, her last use yesterday. She also reports current cocaine and alcohol use, 15 bags of cocaine per day. She currently has auditory hallucinations, voices telling her to hurt herself. She reports past ideations to hurt others, but does not anymore. She reports depressed mood, at times feelings of hopelessness and helplessness, poor sleep and poor appetite. She also reports withdrawal symptoms from heroin including cramps, nausea, vomiting, joint pains and headaches. Past medical history None reported - Diagnosis (1) Depression Current Visit: Yes Status: Acute (2) Opioid use disorder, severe, dependence Current Visit: Yes Status: Acute - Final Diagnosis (DSM 5) Condition upon Discharge: STABLE DSM 5: Major depressive disorder recurrent severe with psychotic features Opioid use disorder severe Opioid withdrawal Cocaine use disorder severe Disposition: HOME/ ROUTINE Follow-up Treatment Plan: Major depressive disorder recurrent severe with psychotic features Opioid use disorder severe Opioid withdrawal Cocaine use disorder severe -CBT -Psychoeducation -Supportive therapy and group therapy -Neurontin for augmentation -Methadone taper -Withdrawal medication including Zofran/clonidine/Motrin -Trazodone for insomnia -Hydroxyzine for anxiety -Remeron for depression -Seroquel for psychosis Prescriptions/Medication Reconciliation: Gabapentin [Neurontin] 100 mg PO TID #60 cap Mirtazapine [Remeron] 15 mg PO HS #30 tab traZODone [Desyrel] 50 mg PO HS PRN #30 tab PRN Reason: Insomnia - Smoking Cessation Smoking Cessation Medication prescribed: No - Antipsychotic Medications Pt discharged on 2 or more routine antipsychotic medications: No
== END 2018-09-17 11:00 | disposition home or self-care (01) | DRG 430 ==
LOC: C.ER 05:30 → C.5E 10:52
PROVIDERS: ADMIT Psychiatry & Neurology Psychiatry; ATTEND Psychiatry & Neurology Psychiatry
PROC: GZHZZZZ Group Psychotherapy (ICD-10-PCS; principal; 2018-09-12)
PROC: HZ46ZZZ Group Counseling for Substance Abuse Treatment, Psychoeducation (ICD-10-PCS; 2018-09-12)
PROC: HZ42ZZZ Group Counseling for Substance Abuse Treatment, Cognitive-Behavioral (ICD-10-PCS; 2018-09-12)
PROC: HZ2ZZZZ Detoxification Services for Substance Abuse Treatment (ICD-10-PCS; 2018-09-12)
PROC: HZ52ZZZ Individual Psychotherapy for Substance Abuse Treatment, Cognitive-Behavioral (ICD-10-PCS; 2018-09-12)
PROC: HZ59ZZZ Individual Psychotherapy for Substance Abuse Treatment, Supportive (ICD-10-PCS; 2018-09-12)
PROC: HZ56ZZZ Individual Psychotherapy for Substance Abuse Treatment, Psychoeducation (ICD-10-PCS; 2018-09-12)
PROC: GZ58ZZZ Individual Psychotherapy, Cognitive-Behavioral (ICD-10-PCS; 2018-09-12)
PROC: GZ56ZZZ Individual Psychotherapy, Supportive (ICD-10-PCS; 2018-09-12)
DX: F33.3 Major depressive disorder, recurrent, severe with psychotic symptoms (principal); F11.23 Opioid dependence with withdrawal; E87.6 Hypokalemia; F14.20 Cocaine dependence, uncomplicated; F41.9 Anxiety disorder, unspecified; R45.851 Suicidal ideations; G47.00 Insomnia, unspecified; I10 Essential (primary) hypertension; Z91.5 Personal history of self-harm